=== PATIENT | female | born 2000 | race Caucasian/White ===

== ENCOUNTER 2022-07-09 11:57 | Emergency (ER) | payer OTHER ==
[~2022-07-09] VITALS: Ht 160 cm; Wt 84.1 kg
[2022-07-09] MEDS ORDERED: HYDROCODONE/ACETAMINOPHEN 5-325 MG TABLET PO ONE (13:00)
[2022-07-09] MEDS ORDERED: CEFTAROLINE 600 MG/D5W 250 ML IV ONE (13:15)
[2022-07-09] MEDS ORDERED: CEPH-558 PO (13:38)
[2022-07-09] MEDS ORDERED: SULF-261 PO (13:39)
[2022-07-09] MEDS ORDERED: IBUP-1492 PO (13:39)
[2022-07-09] MEDS ORDERED: HYDR-4723 PO (13:40)
[2022-07-09 14:20] VITALS: BP 119/70
== END 2022-07-09 14:44 | disposition home or self-care (01) ==
LOC: EMS 11:57
DX: N61.0 Mastitis without abscess (principal)
CPT/HCPCS: 99284; 96365; J0712